=== PATIENT | male | born 1995 | race Caucasian/White ===

== ENCOUNTER 2023-11-20 14:00 | Emergency (ER) | payer OTHER ==
[~2023-11-20] VITALS: Ht 180.3 cm; Wt 127.0 kg
[2023-11-20 14:22] VITALS: BP 141/85; PULSE 74; RESP 22; TEMP 98; O2SAT 98
[2023-11-20] MEDS ORDERED: DICL20GE TP (15:49)
[2023-11-20] MEDS ORDERED: CYCL-711 PO (15:49)
[2023-11-20 16:08] VITALS: BP 125/73; PULSE 76; RESP 20; TEMP 98; O2SAT 99
== END 2023-11-20 16:08 | disposition home or self-care (01) ==
LOC: MED 14:00
DX: S29.012A Strain of muscle and tendon of back wall of thorax, initial encounter (principal); R03.0 Elevated blood-pressure reading, without diagnosis of hypertension; Z79.899 Other long term (current) drug therapy; Z88.0 Allergy status to penicillin; W17.89XA Other fall from one level to another, initial encounter; Y93.89 Activity, other specified; Y92.89 Other specified places as the place of occurrence of the external cause; Y99.8 Other external cause status
CPT/HCPCS: 20553; 99283; 99284